=== PATIENT | female | born 1985 | race Native Hawaiian/Other Pacific Islander ===

== ENCOUNTER 2019-12-14 16:19 | Emergency (ER) | payer OTHER ==
[~2019-12-14] VITALS: Ht 165.1 cm; Wt 79.4 kg
[2019-12-14 19:37] VITALS: BP 138/81; TEMP 98.4
== END 2019-12-14 19:37 | disposition home or self-care (01) ==
LOC: ED 16:19
DX: K02.9 Dental caries, unspecified (principal)
CPT/HCPCS: 96372; 99283; J1885